=== PATIENT | male | born 1990 | race Hispanic/Latino ===

== ENCOUNTER 2023-02-16 11:53 | Emergency (ER) | payer OTHER ==
[~2023-02-16] VITALS: Ht 165.1 cm; Wt 72.6 kg
[2023-02-16 11:58] VITALS: BP 129/88
[2023-02-16] MEDS ORDERED: CEFAZOLIN SODIUM 1 GM VIAL IM SCH (12:30)
[2023-02-16] MEDS ORDERED: TETANUS/DIPHTHERIA TOXOID [ADULT] 0.5 ML VIAL IM ONE (12:30)
[2023-02-16] MEDS ORDERED: LIDOCAINE HCL 1% 20 ML VIAL INJ SCH (12:30)
[2023-02-16] MEDS ORDERED: CEPH500B PO (14:07)
== END 2023-02-16 14:29 | disposition home or self-care (01) ==
LOC: EDH 11:53
DX: S61.011A Laceration without foreign body of right thumb without damage to nail, initial encounter (principal); S61.213A Laceration without foreign body of left middle finger without damage to nail, initial encounter; W01.0XXA Fall on same level from slipping, tripping and stumbling without subsequent striking against object, initial encounter; Y93.89 Activity, other specified; Y92.89 Other specified places as the place of occurrence of the external cause; Y99.8 Other external cause status
CPT/HCPCS: 99284; 90714; 73140 ×2; 90471; 12001; J0690